=== PATIENT | male | born 1970 | race Caucasian/White ===

== ENCOUNTER 2016-12-13 22:26 | Emergency (ER) | payer BC, OTHER ==
[2016-12-13] MEDS ORDERED: Dexamethasone 10 MG/ML VIAL ONE (23:26)
== END 2016-12-13 23:37 | disposition home or self-care (01) ==
LOC: ERS 22:26
DX: M25.461 Effusion, right knee (principal); Z79.899 Other long term (current) drug therapy
CPT/HCPCS: 99283; J1100

== ENCOUNTER 2017-11-25 13:20 | Outpatient (CLI) | payer BC | END 2017-11-25 13:21 | disposition home or self-care (01) | LOC: BICRAD 13:20 | PROVIDERS: ATTEND Podiatrist | DX: M25.571 Pain in right ankle and joints of right foot (principal); M77.31 Calcaneal spur, right foot ==

== ENCOUNTER 2019-02-07 09:59 | Emergency (ER) | payer BC ==
--- NOTE | 2019-02-07 10:44 | ULT ---
EXAM: Left lower extremity venous ultrasound HISTORY: Left lower extremity pain and edema COMPARISON: None TECHNIQUE: Multiplanar grayscale and color Doppler images were obtained in a left lower extremity bridgett ous ultrasound. Spectral analysis of the Doppler waveforms were performed. FINDINGS: The common femoral vein, profunda femoral vein, superficial femoral vein, and popliteal vei n are normal in appearance without visible thrombus. These vessels demonstrate normal compression, flow, and augmentation. The posterior tibial vein and greater saphenous vein are patent without evidence of thrombus. IMPRESSION: No evidence of DVT.
== END 2019-02-07 11:30 | disposition home or self-care (01) ==
LOC: ERS 09:59
DX: M79.652 Pain in left thigh (principal); Z86.718 Personal history of other venous thrombosis and embolism; Z79.899 Other long term (current) drug therapy

== ENCOUNTER 2020-04-08 23:24 | Emergency (ER) | payer BC, OTHER ==
--- NOTE | 2020-04-09 08:00 | ULT ---
LEFT LOWER EXTREMITY DOPPLER VENOUS ULTRASOUND: Date: 04/08/2020 INDICATION: Left thigh pain with history of deep venous thrombosis. TECHNIQUE: Nails scale, color Doppler, and vascular duplex with spectral analysis was performed of the deep venou s structures of the left lower extremity. The common femoral vein, superficial femoral vein, proximal greater saphenous vein, proximal greater profunda vein, popliteal, and posterior tibial veins were a ssessed. FINDINGS: Normal compression, flow, and augmentation was seen within the deep venous structures of the left low er extremity. IMPRESSION: No evidence of deep venous thrombosis within the left lower extremity. POS: [facility]
== END 2020-04-09 00:47 | disposition home or self-care (01) ==
LOC: ERS 23:24
DX: M79.662 Pain in left lower leg (principal); Z79.899 Other long term (current) drug therapy

== ENCOUNTER 2021-10-19 08:38 | Emergency (ER) | payer OTHER, BC | END 2021-10-19 10:53 | disposition home or self-care (01) | LOC: ERS 08:38 | DX: M79.605 Pain in left leg (principal); Z86.718 Personal history of other venous thrombosis and embolism; Z79.899 Other long term (current) drug therapy ==